=== PATIENT | female | born 2000 | race Caucasian/White ===

== ENCOUNTER 2024-01-11 03:45 | Outpatient (CLI) | payer OTHER, SELFPAY ==
--- OUTSIDE RECORDS SUMMARY | 2024-01-12 02:28 | XMS_ITS | Encounter Summary ---
Author Organization [place] Address [address] [place] [address]. [place] [address] Care Team Providers Care Graphic Engineer Name Role Phone Clinic, [facility] Primary Care Provider [phone] Reason for Visit * Reason Comments Ingestion Encounter Details Date Type Department Care Team (Late st Contact Info) Description 01/11/2024 4:18 AM CDT - 01/11/2024 8:24 AM CDT Emergency [facility] Emergency Dept [address] [place] [address] Saima Singh MD [facility] [address] [place], [place] [id number] Walter Carranza MD [address] [place] [address] [place] [id number] Altered mental status, unspecified altered mental status type; Alcoholic intoxication without complication (H24) Discharge Disposition: Home or Self Care Social History Tobacco Use Types Packs/Day Years Used Date Smoking Tobacco: Never Assessed Adolescent Education Answer Date Record ed Getting School Help Needed Not on file 03/26 Sex and Gender Information Value Date Recorded Sex Assigned at Not on file Gender Identity Not on file Sexual Orientation Not on file documented as of this encounter Last Filed Vital Signs Vital Sign Reading Time Taken Comments Blood Pressure 123/92 01/11/2024 8:10 AM CDT Pulse 117 01/11/2024 5:00 AM CDT Temperature 36.7 ??C (98 ??F) 01/11/2024 4:23 AM CDT Respiratory Rate 16 01/11/2024 8:10 AM CDT Oxygen Saturation 99% 01/11/2024 8:10 AM CDT Inhaled Oxygen Concentration - - Weight - - Height - - Body Mass Index - - documented in this encounter Discharge Instructions * Discharge Instructions* Walter Carranza MD - 01/11/2024 7:58 AM CDT Avoid excessive alcohol and any drug use. documented in this encounter ED Notes * Junaid Kramer RN - 01/11/2024 7:58 AM CDT Pt up and awake, states feeling well. Denies SI. MD at bedside to assess. Plan is to Discharge. Junaid Kramer RN * Kassandra Dutton RN - 01/11/2024 4:23 AM CDT Pt to ER with c/o possible ingestion of DIANA drug with some alcohol pt denies any drug use, EMS states that police stated pt was unresponsive when they arrived but no interventions where done, perEMS upon their arrival pt was responsive and walked to the stretcher * Martina Restrepo RN - 01/11/2024 4:18 AM CDT Bed: ED12 Expected date: Expected time: Means of arrival: Comments: NF [id number] * Saima Singh MD - 01/11/2024 4:18 AM CDT Emergency Department Note History of Present Illness Chief Complaint Ingestion HPI Sam Ordoñez is a 23 year old female with a history of asthma who presents to the ED via EMS for evaluation of suspected ingestion. Per EMS report, the patient was found to be unresponsive on policearrival but ambulatory and responsive on EMS arrival. EMS notes possible illicit drug ingestion. The patient states she was slipping in and out of reality when police arrived but was not sure whereshe was when this occurred. Reports left leg pain with EMS arrival but has since resolved. Denies any illicit drug use. Her last period was around 12/21/23 (she checked the date on her phone) and was normal. Denies pain here. Denies nausea, shortness of breath. Denies having any medical history or current prescription medications. Independent Historian EMS as detailed above. Review of External Notes Previous ED visit related to alcohol 02/19/2021 Past Medical History Medical History and Problem List Asthma Medications, historic: [place] Medrol dosepak Sertraline Physical Exam Patient Vitals for the past 24 hrs: BP Temp Temp src Pulse Resp SpO2 01/11/24 0423 (!) 137/91 98 ??F (36.7 ??C) Temporal 109 18 98 % Physical Exam Eyes: Sclera white; Pupils are equal and round; dilated 5mm; eyes roaming without nystagmus ENT: External ears and nares normal CV: Rate as above with regular rhythm Resp: Breath sounds clear and equal bilaterally Non-labored, no retractions or accessory muscle use GI: Abdomen is soft, non-tender, non-distended No rebound tenderness or peritoneal features MS: Moves all extremities Skin: Warm and dry Neuro: Speech is easy to understand but tangential and loses focus easily Diagnostics Lab Results Labs Ordered and Resulted from Time of ED Arrival to Time of ED Departure BASIC METABOLIC PANEL - Abnormal Result Value Sodium 143 Potassium 3.7 Chloride 106 Carbon Dioxide (CO2) 23 Anion Gap 14 Urea Nitrogen 5.1 (*) Creatinine 0.72 GFR Estimate >90 Calcium 8.5 (*) Glucose 101 (*) ETHYL ALCOHOL LEVEL - Abnormal Alcohol ethyl 0.24 (*) ACETAMINOPHEN LEVEL - Abnormal Acetaminophen <5.0 (*) SALICYLATE LEVEL - Normal Salicylate <0.3 HEPATIC FUNCTION PANEL - Normal Protein Total 7.8 Albumin 4.7 Bilirubin Total 0.3 Alkaline Phosphatase 71 AST 21 ALT 11 Bilirubin Direct <0.20 HCG QUALITATIVE - Normal hCG Serum Qualitative Negative CBC WITH PLATELETS AND DIFFERENTIAL WBC Count 6.9 RBC Count 4.70 Hemoglobin 14.1 Hematocrit 41.1 MCV 87 MCH 30.0 MCHC 34.3 RDW 12.7 Platelet Count 260 % Neutrophils 78 % Lymphocytes 15 % Monocytes 6 % Eosinophils 0 % Basophils 1 % Immature Granulocytes 0 NRBCs per 100 WBC 0 Absolute Neutrophils 5.4 Absolute Lymphocytes 1.0 Absolute Monocytes 0.4 Absolute Eosinophils 0.0 Absolute Basophils 0.0 Absolute Immature Granulocytes 0.0 Absolute NRBCs 0.0 Imaging No orders to display EKG ECG taken at 0535, ECG read at 0540 Sinus tachycardia Rate 106 bpm. ME interval 164 ms. QRS duration 72 ms. QT/QTc 352/467 ms. P-R-T axes 75 73 77. No STEMI. No prior. Agree - Dr Singh Independent Interpretation None ED Course Medications Administered Medications - No data to display Procedures Procedures Discussion of Management None ED Course ED Course as of 01/11/24 0522 Sat Jan 11, 2024 0514 I obtained history and performed a physical exam as noted above. Additional Documentation None Medical Decision Making / Diagnosis [facility] Diagnoses: None MIPS None MDM Sam Ordoñez is a 23 year old female presenting with altered mental status and concern for substance induced changes. She denies this but also cannot say what happened tonight. Physical exam is suggestive of stimulant use with dilated pupils and tachycardia. Labs demonstrate alcohol intoxication. No evidence for toxic coingestions such as Tylenol or salicylates. She is not . At time of signout she is pending clinical sobriety prior to clearing for discharge and removing the health officer 40 hold. Disposition Signed out Diagnosis ICD-10-CM 1. Altered mental status, unspecified altered mental status type R41.82 2. Alcoholic intoxication without complication (H24) F10.920 Discharge Medications New Prescriptions No medications on file Scribe Disclosure: IBritney, am serving as a scribe at 5:41 AM on 01/11/2024 to document services personally performed by Saima Singh MD based on my observations and the provider's statements to me. Saima Singh MD 01/11/24 0758 * Walter Carranza MD - 01/11/2024 4:18 AM CDT This patient was taken in signout. At 7:55 AM she is now alert and ambulatory. She carries on a conversation. No evidence of further intoxication or withdrawal. She is requesting to go home and was discharged. Walter Carranza MD 01/11/24 0759 documented in this encounter Plan of Treatment Pending Results Name Type Priority Associated Diagnoses Date /Time EKG 12-lead, tracing only EKG STAT 01/11/2024 5:35 AM CDT documented as of this encounter Procedures Procedure Name Priority Date/Time Associated Diagnosis Comments EKG 12-LEAD, TRACING ONLY STAT 01/11/2024 5:35 AM CDT CBC WITH PLATELETS AND DIFFERENTIAL STAT 01/11/2024 5:34 AM CDT CBC WITH PLATELETS & DIFFERENTIAL STAT 01/11/2024 5:34 AM CDT SALICYLATE LEVEL STAT 01/11/2024 5:34 AM CDT HEPATIC FUNCTION PANEL STAT 5:34 AM CDT HCG QUALITATIVE STAT 01/11/2024 5:34 AM CDT ETHYL ALCOHOL LEVEL STAT 01/11/2024 5 :34 AM CDT ACETAMINOPHEN LEVEL STAT 01/11/2024 5 :34 AM CDT BASIC METABOLIC PANEL STAT 01/11/2024 5:34 AM CDT documented in this encounter Results * CBC with platelets and differential (01/11/2024 5:34 AM CDT) Pathologist [facility] WBC Count 6.9 4.0 - 11.0 10e3/uL 01/11/2024 5:44 AM CDT [facility] RBC Count 4.70 3.80 - 5.20 10e6/uL 01/11/2024 5:44 AM CDT [facility] Hemoglobin 14.1 11.7 - 15.7 g/dL 01/11/2024 5:44 AM CDT [facility] Hematocrit 41.1 35.0 - 47.0 % 01/11/2024 5:44 AM CDT [facility] MCV 87 78 - 100 fL 01/11/2024 5:44 AM CDT [facility] MCH 30.0 26.5 - 33.0 pg 01/11/2024 5:44 AM CDT [facility] MCHC 34.3 31.5 - 36.5 g/dL 01/11/2024 5:44 AM CDT [facility] RDW 12.7 10.0 - 15.0 % 01/11/2024 5:44 AM CDT [facility] Platelet Count 260 150 - 450 10e3/uL 01/11/2024 5:44 AM CDT [facility] % Neutrophils 78 % 01/11/2024 5:44 AM CDT [facility] % Lymphocytes 15 % 01/11/2024 5:44 AM CDT [facility] % Monocytes 6 % 01/11/2024 5:44 AM CDT [facility] % Eosinophils 0 % 01/11/2024 5:44 AM CDT [facility] % Basophils 1 % 01/11/2024 5:44 AM CDT [facility] % Immature Granulocytes 0 % 01/11/2024 5:44 AM CDT [facility] NRBCs per 100 WBC 0 <1 /100 024 5:44 AM CDT [facility] Absolute Neutrophils 5.4 1.6 - 8.3 10e3/uL 01/11/2024 5:44 AM CDT [facility] Absolute Lymphocytes 1.0 0.8 - 5.3 10e3/uL 01/11/2024 5:44 AM CDT [facility] Absolute Monocytes 0.4 0.0 - 1.3 10e3/uL 01/11/2024 5:44 AM CDT [facility] Absolute Eosinophils 0.0 0.0 - 0.7 10e3/uL 01/11/2024 5:44 AM CDT [facility] Absolute Basophils 0.0 0.0 - 0.2 10e3/uL 01/11/2024 5:44 AM CDT [facility] Absolute Immature Granulocytes 0.0 <=0.4 10e3/uL 01/11/2024 5:44 AM CDT [facility] Absolute NRBCs 0.0 10e3/uL 01/11/2024 5:44 AM CDT [facility] Blood STRUCTURE OF RIGHT UPPER LIMB / Unknown Venipuncture / Unknown 01/11/2024 5:34 AM CDT 01/11/2024 5:40 AM CDT Jazmin Thurman DO LAB - BLOOD ORDERA BLES Performing Organization Address City/[facility]/ZIP Co de Phone Number [facility] Lab [address] Lab (1st floor, no room number) [place] [address] * HCG QUALitative (blood) (01/11/2024 5:34 AM CDT) hCG Serum Qualitative Negative Negative MARISELA 01/11/2024 6:15 AM CDT [facility] Comment:This test is for scr eening purposes. Results should be interpreted along with the clinical picture. Confirmation testing is available if warranted by ordering [id number], HCG Quantitative . Blood STRUCTURE OF RIGHT UPPER LIMB / Unknown Venipuncture / Unknown 01/11/2024 5:34 AM CDT 01/11/2024 5:40 AM CDT Saima Singh MD LAB - BLOOD ORD ERABLES Performing Organization Address City/[facility]/ZIP Co de Phone Number [facility] Lab [address] Lab (1st floor, no room number) [place] [address] * Hepatic function panel (01/11/2024 5:34 AM CDT) Protein Total 7.8 6.4 - 8.3 g/dL 01/11/2024 6:02 AM CDT [facility] Albumin 4.7 3.5 - 5.2 g/dL 01/11/2024 6:02 AM CDT [facility] Bilirubin Total 0.3 <=1.2 mg/dL 01/11/2024 6:02 AM CDT [facility] Alkaline Phosphatase 71 40 - 150 U/L 01/11/2024 6:02 AM CDT [facility] AST 21 0 - 45 U/L 01/11/2024 6:02 AM CDT [facility] ALT 11 0 - 50 U/L 01/11/2024 6:02 AM CDT [facility] Bilirubin Direct <0.20 0.00 - 0.30 mg/dL 01/11/2024 6:02 AM CDT [facility] Blood STRUCTURE OF RIGHT UPPER LIMB / Unknown Venipuncture / Unknown 01/11/2024 5:34 AM CDT 01/11/2024 5:40 AM CDT Saima Singh MD LAB - BLOOD ORD ERABLES [facility] Lab [address] Lab (1st floor, no room number) [place] [phone] [place] [address] * Salicylate level (01/11/2024 5:34 AM CDT) Salicylate <0.3 mg/dL 01/11/2024 7:43 AM CDT [facility] Comment: Salicylate Reference Range Therapeutic: ? 3-10 mg/dL Anti inflammatory: 15-30 mg/dL Blood STRUCTURE OF RIGHT UPPER LIMB / Unknown Venipuncture / Unknown 01/11/2024 5:34 AM CDT 01/11/2024 6:19 AM CDT Jazmin Thurman DO LAB - BLOOD ORDERA BLES Performing Organization Address City/[facility]/ZIP Co de Phone Number [facility] Lab [address] Lab (1st floor, no room number) [place] [phone] [place] [address] * (ABNORMAL) Acetaminophen level (01/11/2024 5:34 AM CDT) Acetaminophen <5.0(L) 10.0 - 30.0 ug/mL 01/11/2024 7:43 AM CDT LABORATORY Blood STRUCTURE OF RIGHT UPPER LIMB / Unknown Venipuncture / Unknown 01/11/2024 5:34 AM CDT 01/11/2024 6:19 AM CDT Jazmin Thurman DO LAB - BLOOD ORDERA BLES [facility] Lab [address] Lab (1st floor, no room number) [place] [phone] [place] [address] * (ABNORMAL) Alcohol level blood (01/11/2024 5:34 AM CDT) Alcohol ethyl 0.24(H) <=0.01 g/dL 01/11/2024 6:02 AM CDT LABORATORY Blood STRUCTURE OF RIGHT UPPER LIMB / Unknown Venipuncture / Unknown 01/11/2024 5:34 AM CDT 01/11/2024 5:40 AM CDT Jazmin Thurman DO LAB - BLOOD ORDERA BLES LABORATORY [facility] Acute Care Lab [address] Lab (1st floor, no room number) [address] [place] [address] * (ABNORMAL) Basic metabolic panel (01/11/2024 5:34 AM CDT) Pathologist [facility] Sodium 143 135 - 145 mmol/L 01/11/2024 6:02 AM CDT LABORATORY Potassium 3.7 3.4 - 5.3 mmol/L 01/11/2024 6:02 AM CDT LABORATORY Chloride 106 98 - 107 mmol/L 01/11/2024 6:02 AM CDT LABORATORY Carbon Dioxide (CO2) 23 22 - 29 mmol/L 01/11/2024 6:02 AM CDT LABORATORY Anion Gap 14 7 - 15 mmol/L 01/11/2024 6:02 AM CDT LABORATORY Urea Nitrogen 5.1(L) 6.0 - 20.0 mg/dL 01/11/2024 6:02 AM CDT LABORATORY Creatinine 0.72 0.51 - 0.95 mg/dL 01/11/2024 6:02 AM CDT LABORATORY GFR Estimate >90 >60 mL/min/1.7 3m2 01/11/2024 6:02 AM CDT LABORATORY Comment:eGFR calculated usin 2020 CKD-EPI equation. Calcium 8.5(L) 8.8 - 10.4 mg/dL 01/11/2024 6:02 AM CDT LABORATORY Comment:Reference intervals for this test were updated on 12/24/2023 to reflect our healthy population more accurately. There may be differences in the flagging of prior results with similar values performed with this method. Those prior results can be interpreted in the context of the updated reference intervals. Glucose 101(H) 70 - 99 mg/dL 01/11/2024 6:02 AM CDT LABORATORY Blood STRUCTURE OF RIGHT UPPER LIMB / Unknown Venipuncture / Unknown 01/11/2024 5:34 AM CDT 01/11/2024 5:40 AM CDT Jazmin Thurman DO LAB - BLOOD ORDERA BLES LABORATORY [facility] Acute [facility] Lab [address] Lab (1st floor, no room number) [place] [address], [facility] documented in this encounter Visit Diagnoses Diagnosis Altered mental status, unspecified altered mental status type Alcoholic intoxication without complication (H24) documented in this encounter Care Teams Graphic Engineer Relationship Specialty Start Date End Date [facility], Wei Roche [address] [place] [address] [place] [address] PCP - General 01/11/24 documented as of this encounter
--- OUTSIDE RECORDS SUMMARY | 2024-01-12 02:28 | XMS_ITS | Referral Summary ---
Author Organization [facility] Address [address] [place] [address] Care Team Providers Care Piece Work Checker Name Role Phone Elsewhere, Pcp Primary Care Provider Unavailabl e Source Comments Patient records contain information from all sites at [facility]. For routine questions regarding patient records, call [phone] during business hours, M-F 8:00 AM - 5:00 PM Central Time. Record requests for emergency care only can be directed to [phone] at any time.[facility] Allergies Active Allergy Reactions Criticality Noted Date Comments Azithromycin Rash Low 07/04/2020 Oxytocin Other (see comments) 12/09/2022 Pt reports her mother was given a dose when she was in utero and her heart rate went up. Pt requested this medication be added to her chart. Medications Medication Sig Dispensed Refills Start Date End Date Status loratadine (CLARITIN) 10 mg tablet Take 10 mg by mouth at bedtime as needed. 03/02/2020 Active hydrOXYzine (ATARAX) 10 mg tablet 1-2 tabs up to three time daily as needed for anxiety or insomnia. May cause drowsiness. 03/02/2020 Active albuterol 90 mcg/actuation inhaler Inhale 2 puffs every 4 (four) hours as needed. 03/02/2020 Active Social History Tobacco Use Types Packs/Day Years Used Date Smoking Tobacco: Never Tobacco Cessation:Counseling Given: Not Answered Alcohol Use Standard Drinks/Week Comments Yes 0 (1 standard drink = 0.6 oz pur e alcohol) socially Nutrition Answer Date Recorded Nutrition: EVOO Fat Source Unknown 12/09 Nutrition: Servings of Fruits/Vegetables per Day Not on file 12/09/2022 Dental Answer Date Recorded Dental: Regular Dentist Unknown 12/10/19 Sex and Gender Information Value Date Recorded Sex Assigned at Not on file Gender Identity Not on file Sexual Orientation Not on file Last Filed Vital Signs Vital Sign Reading Time Taken Comments Blood Pressure 93/48 12/09/2022 6:30 PM CDT Pulse 79 12/09/2022 6:30 PM CDT Temperature 37.4 ??C (99.3 ??F) 12/09/2022 5:30 PM CD T Respiratory Rate 18 12/09/2022 6:30 PM CDT Oxygen Saturation 99% 12/09/2022 6:30 PM CDT Inhaled Oxygen Concentration - - Weight 45.4 kg (100 lb) 12/09/2022 5:24 PM CDT Height - - Body Mass Index - - Plan of Treatment Not on file Care Teams Piece Work Checker Relationship Specialty Start Date End Date Elsewhere, Pcp PCP - General Internal Medicine 12/09/22
--- OUTSIDE RECORDS SUMMARY | 2024-01-12 02:28 | XMS_ITS | Clinical Summary ---
Author Organization [facility] Address [place], [place] [address] Care Team Providers Care Shot Hole Shooter Name Role Phone Dawn Roy DO Primary Care Provide r Allergies Active Allergy Reactions Criticality Noted Date Comments Azithromycin Rash Low 07/04/2020 Medications Medication Sig Dispensed Refills Start Date End Date Status loratadine (CLARITIN) 10 mg tablet Take 1 tablet by mouth once daily if needed for Allergy Symptoms. 0 03/02/2020 Active albuterol HFA (VENTOLIN HFA) 90 mcg/actuation inhalerIndications:ELIZABETH (dyspnea on exertion),Reactive airway disease, unspecified asthma severity, uncomplicated Inhale 2 Puffs by mouth every 4 hours if needed. 18 g 2 03/02/2020 Active hydrOXYzine HCL (ATARAX) 10 mg tabletIndications:TAMIR (generalized anxiety disorder) 1-2 tabs up to three time daily as needed for anxiety or insomnia. May cause drowsiness. 30 tablet 1 03/02/2020 Active Active Problems Problem Noted Date Diagnosed Date 1st degree AV block 05/04/2019 Breast lump, left 10/22/2018 Overview: 10/22/18 Breast Ultrasound: The LEFT breast lump along the 1 o'clock radian 3 cm from the nipple corresponds to a circumscribed solid, hypoechoic mass measuring 4.5 x 2.2 x 4.3 cm. The long axis parallels the skin surface. There is increased through-transmission. This most likely represents a benign fibroadenoma. IMPRESSION: Probable benign fibroadenoma. Options include either ultrasound-guided biopsy or surgical excision. Mild intermittent asthma Resolved Problems Problem Noted Date Diagnosed Date Resolved Date Otitis media 09/25/2009 Immunizations Name Administration Dates Next Due COVID-19 vaccine ([employer] 30mcg/0.3mL) PF, MDV 11/15/2020,10/25/2020 DTaP 01/22/2008,12/15/2003 [id number] (Pediarix) 2002,2002,0 2002 HIB PRP-T (ActHIB,Hiberix) 12/15/2003,,2002,08/28 HPV 9 (Gardasil 9) 03/03/2018 Hepatitis A (Peds) 03/03/2018,01/13/2014 Human Papilloma Virus Vaccine 02/24/2014, 014 Inactivated Polio Vaccine 01/22/2008 Influenza A (H1N1), Inactivated 06/21/2009,04/26 Influenza, IIV3 (Age >=3 years) 04/26/2008 Influenza, IIV4 02/24/2014 MMR 01/22/2008,07/15/2003 Meningococcal Vaccine (Menveo) 09/02/2018,2013 Tdap 01/13/2014 Varicella Vaccine 04/26/2008,07/15/2003 Family History Medical History Relation Name Comments Good Health Brother 2 younger 9 yr Heart failure Father Wilder advanced in 20 13 Heart Disease Maternal Grandfather CABG 3 vsl at 61yo?, stents also Hypertension Maternal Grandmother Good Health Mother Gabbie Cancer Paternal Grandfather childho od cancer/renal?, lymphoma? Stroke Paternal Grandfather at 57yo Good Health Paternal Grandmother Relation Name Status Comments Brother 1 Marvin. younger 5 yr Alive Brother 2 younger 9 yr Alive Father Wilder Alive Maternal Grandfather Maternal Grandmother Mother Gabbie Alive Paternal Grandfather Paternal Grandmother Social History Tobacco Use Types Packs/Day Years Used Date Smoking Tobacco: Never Smokeless Tobacco: Never Tobacco Cessation:Counseling Given: Yes Alcohol Use Standard Drinks/Week Comments No 0 (1 standard drink = 0.6 oz pur e alcohol) PHQ-2 Answer Date Recorded PHQ-2 TOTAL SCORE 2 11/09/2022 Social Connections Answer Date Recorded Frequency of Communication with Friends and Fami ly Not on file 11/13/2023 Financial Resource Strain Answer Date R ecorded Difficulty of Paying Living Expenses 3 11/09/2022 Difficulty of Paying Living Expenses Not on file 11/09/2022 Food Insecurity Answer Date Recorded Worried About Running Out of Food in the Last Ye ar 1 11/09/2022 Transportation Needs Answer Date Record ed Lack of Transportation (Medical) 1 11/09/2022 Housing Stability Answer Date Recorded Unable to Pay for Housing in the Last Year 1 11/09/2022 Sex and Gender Information Value Date Recorded Sex Assigned at Not on file Gender Identity Not on file Sexual Orientation Not on file Obstetrics History Last Filed Vital Signs Vital Sign Reading Time Taken Comments Blood Pressure 110/72 11/09/2022 10:15 AM CDT Pulse 79 11/09/2022 10:15 AM CDT Temperature 39.4 ??C (102.9 ??F) 06/23/2020 1:[address] Respiratory Rate 16 06/05/2018 8:32 AM INTERCHANGE AGENT Oxygen Saturation 98% 11/09/2022 10:15 AM CDT Inhaled Oxygen Concentration - - Weight 45.8 kg (101 lb) 11/09/2022 10:15 AM CDT Height 156.5 cm (5' 1.61) 07/04/2020 1:57 PM CS T Body Mass Index - - Plan of Treatment Health Maintenance Due Date Last Done Comments HIV for age 15-65 2017 Hepatitis C screening for age 18-79 2020 Chlamydia for age 16-24 03/02/2021 03/02/20 20, 03/27/2019, 09/02/2018 BMI (ht and wt on same day) for age 18+ 07/04/2021 07/04/2020 COVID-19 vaccine series ( season) 2023 11/15/2020, 10/25/2020 Pap test for age 21-65 2023 Depression screening for age 12+ 11/10/2023 11/09/2022, 03/02/2020, 09/02/2018, Additional history exists Tetanus booster 01/14/2024 01/13/2014 Influenza for age 9-49 02/09/2024 4, 06/21/2009, 04/26/2009, Additional history exists Tdap Completed 01/13/2014 HPV series for age 9-26 Completed 03/03/20 18, 02/24/2014, 01/13/2014 Meningococcal series for age 11-21 Completed 09/02/2018, 01/13/2014 Pneumococcal series for age 6-64 Aged Out No longer eligible based on patient's age to complete this topic Procedures Procedure Name Priority Date/Time Associated Diagnosis Comments GC CHLAMYDIA TRACH PROBE Routine 03/02/2020 3:23 PM CDT Screening examination for STD (sexually transmitted disease) from Last 3 Months or Most Recently Relevant to Health Maintenance Results * GC CHLAMYDIA TRACH PROBE [[id number]] (urine, or cervical or urethral swab) (03/02/2020 3:23 PM CDT) CHLAMYDIA PROBE Negative 0 12:16 PM CDT [facility] N GONORRHOEAE PROBE Negative 03/03/2020 12:16 PM CDT [facility] Other URINE SPECIMEN / Unknown Non-Blood / Unknown 03/02/2020 3:23 PM CDT 03/02/2020 3:23 PM CDT Dawn Roy DO MICROBIOLOGY [facility] [address] [place] [address], [place] from Last 3 Months or Most Recently Relevant to Health Maintenance Care Teams Shot Hole Shooter Relationship Specialty Start Date End Date Dawn Roy DO [address] [place] [address] PCP - General Family Practice 01/02/18
--- OUTSIDE RECORDS SUMMARY | 2024-01-12 02:28 | XMS_ITS | Encounter Summary ---
Author Organization [facility] Address [address] [place] [address]. [place] [address] Care Team Providers Care Passenger Service Manager Name Role Phone Wei Tsai Primary Care Provider [phone] Encounter Details Date Type Department Care Team (Latest Contact Info) Description 01/11/2024 Travel Social History Tobacco Use Types Packs/Day Years Used Date Smoking Tobacco: Never Assessed Adolescent Education Answer Date Record ed Getting School Help Needed Not on file 03/26 Sex and Gender Information Value Date Recorded Sex Assigned at Not on file Gender Identity Not on file Sexual Orientation Not on file documented as of this encounter Plan of Treatment Not on file documented as of this encounter Visit Diagnoses Not on filedocumented in this encounter Care Teams Passenger Service Manager Relationship Specialty Start Date End Date Wei Tsai [facility] [place] [id number] PCP - General 01/11/24 documented as of this encounter
--- OUTSIDE RECORDS SUMMARY | 2024-01-12 02:28 | XMS_ITS | Referral Summary ---
Author Organization [facility] Address [address] [place] [address]. [place] [address] Care Team Providers Care Commercial Sheet Metal Foreman Name Role Phone Clinic, Wei Roche Primary Care Provider Encounters Date Type Department Care Team Description 01/11/2024 Travel 01/11/2024 4:18 AM CDT - 01/11/2024 8:24 AM CDT Emergency [facility] Emergency Dept [address] [place] [address] Saima Singh MD McRoberts, Sean Edward, MD Altered mental status, unspecified altered mental status type; Alcoholic intoxication without complication (H24) Discharge Disposition: Home or Self Care from Last 3 Months Allergies Active Allergy Reactions Criticality Noted Date Comments Azithromycin Rash Low 07/04/2020 Medications No known medications Social History Tobacco Use Types Packs/Day Years [...] - Plan of Treatment Not on file Procedures Procedure Name Priority Date/Time Associated Diagnosis Comments EKG 12-LEAD, TRACING ONLY STAT 01/11/2024 5:35 AM CDT CBC WITH PLATELETS & DIFFERENTIAL STAT 01/11/2024 5:34 AM CDT CBC WITH PLATELETS AND DIFFERENTIAL STAT 01/11/2024 5:34 AM CDT HCG QUALITATIVE STAT 01/11/2024 5:34 AM CDT HEPATIC FUNCTION PANEL STAT 5:34 AM CDT SALICYLATE LEVEL STAT 01/11/2024 5:34 AM CDT ACETAMINOPHEN LEVEL STAT 01/11/2024 5 :34 AM CDT ETHYL ALCOHOL LEVEL STAT 01/11/2024 5 :34 AM CDT BASIC METABOLIC PANEL STAT 01/11/2024 5:34 AM CDT from Last 3 Months Results * CBC with platelets and differential (01/11/2024 5:34 AM CDT) [facility] WBC Count 6.9 4.0 - [...] Thurman DO LAB - BLOOD ORDERA BLES [facility] LABORATORY [facility] Acute Care Lab [address] Lab (1st floor, no room number) [place] [address], [facility] * Salicylate level (01/11/2024 5:34 AM CDT) Salicylate <0.3 mg/dL 01/11/2024 7:43 AM CDT [facility] LABORATORY Comment: Salicylate Reference Range Therapeutic: ? 3-10 mg/dL Anti inflammatory: 15-30 mg/dL Blood STRUCTURE OF RIGHT UPPER LIMB / Unknown Venipuncture / Unknown 01/11/2024 5:34 AM CDT 01/11/2024 6:19 AM CDT Jazmin Thurman DO LAB - BLOOD ORDERA BLES Performing Organization Address City/[facility]/ZIP Co de Phone Number [facility] Acute Care Lab [address] Lab (1st floor, no room number) [place] [address], [facility] * Hepatic function panel (01/11/2024 5:34 AM CDT) [facility] Protein Total 7.8 6.4 - 8.3 g/dL [...] Singh MD LAB - BLOOD ORD ERABLES [facility] Acute Care Lab [address] Lab (1st floor, no room number) [place] [address], [facility] * HCG QUALitative (blood) (01/11/2024 5:34 AM CDT) hCG Serum Qualitative Negative Negative MARISELA 01/11/2024 6:15 AM CDT RH LAB[facility]ATORY Comment:This test is for scr eening purposes. Results should be interpreted along with the clinical picture. Confirmation testing is available if warranted by ordering [id number], HCG Quantitative . Blood STRUCTURE OF RIGHT UPPER LIMB / Unknown Venipuncture / Unknown 01/11/2024 5:34 AM CDT 01/11/2024 5:40 AM CDT Saima Singh MD LAB - BLOOD ORD ERABLES LABORATORY [facility] Acute Care Lab [address] Lab (1st floor, no room number) [address] * (ABNORMAL) Alcohol level blood (01/11/2024 5:34 AM CDT) Alcohol ethyl 0.24(H) <=0.01 g/dL 01/11/2024 6:02 AM CDT [facility] LAB[facility] Blood STRUCTURE OF RIGHT UPPER LIMB / Unknown Venipuncture / Unknown 01/11/2024 5:34 AM CDT 01/11/2024 5:40 AM CDT Jazmin Thurman DO LAB - BLOOD ORDERA BLES LABORATORY [facility] Acute Care Lab [address] Lab (1st floor, no room number) [address] * (ABNORMAL) Acetaminophen level (01/11/2024 5:34 AM CDT) Acetaminophen <5.0(L) 10.0 - 30.0 ug/mL 01/11/2024 7:43 AM CDT RH LAB[facility]ORY Blood STRUCTURE OF RIGHT UPPER LIMB / Unknown Venipuncture / Unknown 01/11/2024 5:34 AM CDT 01/11/2024 6:19 AM CDT Jazmin Thurman DO LAB - BLOOD ORDERA BLES RH LABORATORY [facility] Acute Care Lab [address] Lab (1st floor, no room number) [place] [address], [facility] * (ABNORMAL) Basic metabolic panel (01/11/2024 5:34 AM CDT) Sodium 143 135 - 145 mmol/L 01/11/2024 [...] AM CDT 01/11/2024 5:40 AM CDT Jazmin E Thurman DO LAB - BLOOD ORDERA BLES RH LABORATORY [facility] Acute Care Lab [address] Lab (1st floor, no room number) [place] [address], [facility] from Last 3 Months Care Teams Commercial Sheet Metal Foreman Relationship Specialty Start Date End Date Clinic, Wei Roche [address] [place], [place] [address] [address] PCP - General 01/11/24
--- OUTSIDE RECORDS SUMMARY | 2024-01-12 02:28 | XMS_ITS | Clinical Summary ---
Author Organization [facility] Address [address] [place] [address] Care Team Providers Care Dry Cleaning Supervisor Name Role Phone Elsewhere, Pcp Primary Care Provider Unavailabl e Source Comments Patient records contain information from all sites at [facility]. For routine questions regarding patient records, call [phone] during business hours, M-F 8:00 AM - 5:00 PM Central Time. Record requests for emergency care only can be directed to [phone] at any time.[facility] Allergies Active Allergy Reactions Criticality Noted Date [...] Health Maintenance Due Date Last Done Comments Cervical Cancer Screening 2002 Chlamydia and Gonorrhea Screening 2002 HIV Screening 2002 Hearing Screening during Well Child Visit 2002 Hepatitis C Screening 2002 TB Screening during Well Child Visit 2002 1 week Well Child Check-Up 2002 1 month Well Child Check-Up 2002 2 month Well Child Check-Up 2002 4 month Well Child Check-Up 2002 6 month Well Child Check-Up 2002 9 month Well Child Check-Up 02/28/2003 12 month Well Child Check-Up 05/30/2003 15 month Well Child Check-Up 08/29/2003 18 month Well Child Check-Up 11/29/2003 2 year Well Child Check-Up 05/30/2004 30 month Well Child Check-Up 11/28/2004 3 year Well Child Check-Up 05/30/2005 Well Child Check-Up Completed in Past Year 05/30/2005 4 year Well Child Check-Up 05/30/2006 5 year Well Child Check-Up 05/30/2007 6 year Well Child Check-Up 05/30/2008 7 year Well Child Check-Up 05/30/2009 8 year Well Child Check-Up 05/30/2010 9 year Well Child Check-Up 05/30/2011 10 year Well Child Check-Up 05/30/2012 11 year Well Child Check-Up 05/30/2013 12 year Well Child Check-Up 05/30/2014 13 year Well Child Check-Up 05/30/2015 14 year Well Child Check-Up 05/30/2016 15 year Well Child Check-Up 05/30/2017 16 year Well Child Check-Up 05/30/2018 17 year Well Child Check-Up 05/30/2019 18 year Well Child Check-Up 05/30/2020 19 year Well Child Check-Up 05/30/2021 20 year Well Child Check-Up 05/30/2022 COVID-19 Vaccine ( season) 2023 11/15/2020, 10/25/2020 21 year Well Child Check-Up 05/30/2023 Well Child Check-Up (WCC) 05/30/2023 Depression Screening (Annual PHQ-2) 06/10/2023 DTaP,Tdap,and Td Vaccines (7 - Td or Tdap) 01/14/2024 01/13/2014, 01/22/2008, 12/15/2003, Additional history exists Influenza Vaccine (#1) 2024 4, 04/26/2008, 04/26/2008 Hepatitis B Vaccines Completed 2002, 2002, 2002 HPV Vaccines Completed 03/03/2018, 02/08, 01/13/2014 Meningococcal Vaccine Completed 09/02/2018, 014 Pneumococcal vaccine (0-64 years) Aged Out No longer eligible based on patient's age to complete this topic Care Teams Dry Cleaning Supervisor Relationship Specialty Start Date End Date Elsewhere, Pcp PCP - General Internal Medicine 12/09/22
--- OUTSIDE RECORDS SUMMARY | 2024-01-12 02:28 | XMS_ITS | Clinical Summary ---
Author Organization [facility] Address [address] [place] [address]. [place] [address] Care Team Providers Care Belt Loop Maker Name Role Phone Clinic, Wei Roche Primary Care Provider Allergies Active Allergy Reactions Criticality Noted Date Comments Azithromycin Rash Low 07/04/2020 Medications No known medications Encounters Date Type Department Care Team Description 01/11/2024 4:18 AM CDT - 01/11/2024 8:24 AM CDT Emergency [facility] Emergency Dept [address] [place] [address] Saima Singh MD McRoberts, Walter Negron MD Altered mental status, unspecified altered mental status type; Alcoholic intoxication without complication (H24) Discharge Disposition: Home or Self Care 01/11/2024 Travel from Last 3 Months Social History Tobacco Use Types Packs/Day Years [...] Health Maintenance Due Date Last Done Comments ADVANCE CARE PLANNING 2002 ANNUAL REVIEW OF HM ORDERS 2002 HIV SCREENING 2017 HEPATITIS C SCREENING 2020 CHLAMYDIA SCREENING 03/02/2021 03/02/2020 YEARLY PREVENTIVE VISIT 03/02/2021 03/02/2020 COVID-19 Vaccine ( season) 2023 11/15/2020, 10/25/2020 PHQ-2 (once per calendar year) 2023 PAP 2023 DTAP/TDAP/TD IMMUNIZATION (7 - Td or Tdap) 01/14/2024 01/13/2014, 01/22/2008, 12/15/2003, Additional history exists INFLUENZA VACCINE (#1) 2024 4, 06/21/2009, 04/26/2009, Additional history exists HEPATITIS B IMMUNIZATION Completed 003, 2002, 2002 IPV IMMUNIZATION Completed 01/22/2008, , 2002, Additional history exists HPV IMMUNIZATION Completed 03/03/2018, , 01/13/2014 MENINGITIS IMMUNIZATION Completed 09/02/2018, 01/13 Pneumococcal Vaccine: Pediatrics (0 to 5 Years) and At-Risk Patients (6 to 64 Years) Aged Out No longer eligible based on patient's age to complete this topic RSV MONOCLONAL ANTIBODY Aged Out No l onger eligible based on patient's age to complete [...] platelets and differential (01/11/2024 5:34 AM CDT) WBC Count 6.9 4.0 - 11.0 10e3/uL [...] DO LAB - BLOOD ORDERA BLES LABORATORY [facility] Acute Care Lab [address] Lab (1st floor, no room number) [place] [address] * Salicylate level (01/11/2024 5:34 AM CDT) [facility] Signature Salicylate <0.3 mg/dL 01/11/2024 7:43 AM CDT RH LABORATORY Comment: Salicylate Reference Range Therapeutic: ? 3-10 mg/dL Anti inflammatory: 15-30 mg/dL Blood STRUCTURE OF RIGHT UPPER LIMB / Unknown Venipuncture / Unknown 01/11/2024 5:34 AM CDT 01/11/2024 6:19 AM CDT Jazmin Thurman DO LAB - BLOOD ORDERA BLES LABORATORY [facility] Acute Care Lab [address] Lab (1st floor, no room number) [place] [address], [facility] * Hepatic function panel (01/11/2024 5:34 [...] Singh MD LAB - BLOOD ORD ERABLES [facility] Lab [address] Lab (1st floor, no room number) [place] [address] * HCG QUALitative (blood) (01/11/2024 5:34 AM CDT) Pathologist [facility] hCG Serum Qualitative Negative Negative MARISELA 01/11/2024 6:15 AM CDT RH LABORATORY Comment:This test is for scr eening purposes. Results should be interpreted along with the clinical picture. Confirmation testing is available if warranted by ordering [id number], HCG Quantitative . Blood STRUCTURE OF RIGHT UPPER LIMB / Unknown Venipuncture / Unknown 01/11/2024 5:34 AM CDT 01/11/2024 5:40 AM CDT Saima Singh MD LAB - BLOOD ORD ERABLES [facility] Care Lab [address] Lab (1st floor, no room number) [place] [id number] * (ABNORMAL) Alcohol level blood (01/11/2024 5:34 AM CDT) Alcohol ethyl 0.24(H) <=0.01 g/dL 01/11/2024 6:02 AM CDT LABORATORY Blood STRUCTURE OF RIGHT UPPER LIMB / Unknown Venipuncture / Unknown 01/11/2024 5:34 AM CDT 01/11/2024 5:40 AM CDT Jazmin Thurman DO LAB - BLOOD ORDERA BLES LABORATORY [facility] Lab [address] Lab (1st floor, no room number) [place] [id number] * (ABNORMAL) Acetaminophen level (01/11/2024 5:34 AM CDT) Pathologist [facility] Acetaminophen <5.0(L) 10.0 - 30.0 ug/mL 01/11/2024 7:43 AM CDT LABORATORY Blood STRUCTURE OF RIGHT UPPER LIMB / Unknown Venipuncture / Unknown 01/11/2024 5:34 AM CDT 01/11/2024 6:19 AM CDT Jazmin Thurman DO LAB - BLOOD ORDERA BLES LABORATORY [facility] Acute Care Lab [address] Lab (1st floor, no room number) [place] [id number] * (ABNORMAL) Basic metabolic panel (01/11/2024 5:34 AM CDT) Sodium 143 135 - 145 mmol/L 01/11/2024 6:02 AM CDT LABORATORY Potassium 3.7 3.4 - 5.3 mmol/L 01/11/2024 6:02 AM CDT LABORATORY Chloride 106 98 - 107 mmol/L 01/11/2024 6:02 AM CDT RH LABORAT[facility] Carbon Dioxide (CO2) 23 22 - 29 mmol/L 01/11/2024 6:02 AM CDT RH LAB[facility] Anion Gap 14 7 - 15 mmol/L 01/11/2024 6:02 AM CDT RH LAB[facility] Urea Nitrogen 5.1(L) 6.0 - 20.0 mg/dL 01/11/2024 6:02 AM CDT RH LAB[facility]ORY Creatinine 0.72 0.51 - 0.95 mg/dL 01/11/2024 6:02 AM CDT RH LAB[facility] GFR Estimate >90 >60 mL/min/1.7 3m2 01/11/2024 6:02 AM CDT RH LAB[facility]ATORY Comment:eGFR calculated us2020 CKD-EPI equation. Calcium 8.5(L) 8.8 - 10.4 mg/dL 01/11/2024 6:02 AM CDT RH LAB[facility] Comment:Reference intervals for this test were updated on 12/24/2023 to reflect our healthy population more accurately. There may be differences in the flagging of prior results with similar values performed with this method. Those prior results can be interpreted in the context of the updated reference intervals. Glucose 101(H) 70 - 99 mg/dL 01/11/2024 6:02 AM CDT RH LAB[facility] Blood STRUCTURE OF RIGHT UPPER LIMB / Unknown Venipuncture / Unknown 01/11/2024 5:34 AM CDT 01/11/2024 5:40 AM CDT Jazmin Thurman DO LAB - BLOOD ORDERA BLES RH LABORATORY [facility] Acute Care Lab [address] Lab (1st floor, no room number) [place] [address], [facility] from Last 3 Months Care Teams Belt Loop Maker Relationship Specialty Start Date End Date Clinic, Wei Roche [address] [place] [address] [place] [id number] PCP - General 01/11/24
--- OUTSIDE RECORDS SUMMARY | 2024-01-12 02:28 | XMS_ITS ---
Author Organization [facility] Address [address] [place] [address] Care Team Providers Care Corporate Banking Officer Name Role Phone Unavailable Unavailable Unavailable Surgery Details Not on file Complications Check Surgery Details section. Procedure Estimated Blood Loss Check Surgery Details section. Procedure Findings Check Surgery Details section. Procedure Specimens Taken Check Surgery Details section.
== END 2024-01-11 03:46 | disposition home or self-care (01) ==
LOC: AMB 01-12 02:26
PROVIDERS: Visit Provider Emergency Medicine
DX: R41.82 Altered mental status, unspecified (principal); F10.129 Alcohol abuse with intoxication, unspecified; F19.10 Other psychoactive substance abuse, uncomplicated
CPT/HCPCS: A0425; A0427

== ENCOUNTER 2024-04-10 09:04 | Outpatient (CLI) | payer OTHER, SELFPAY ==
--- OUTSIDE RECORDS SUMMARY | 2024-04-10 09:07 | XMS_ITS | Clinical Summary ---
Author Organization [facility] Address [address] [place] [address] Care Team Providers Care Acoustic Warfare Analyst Name Role Phone Elsewhere, Pcp Primary Care Provider Unavailabl e Source Comments Patient records contain information from all sites at [facility]. For routine questions regarding patient records, call [phone] during business hours, M-F 8:00 AM - 5:00 PM Central Time. Record requests for emergency care only can be directed to [phone] at any time.[facility] Allergies Active Allergy Reactions Criticality Noted Date Comments Azithromycin Rash Low 07/04/2020 Oxytocin Other (see comments) 12/09/2022 Pt reports her mother was given a dose when she was in utero and her heart rate went up. Pt requested this medication be added to her chart. Medications loratadine (CLARITIN) 10 mg tablet Take 10 [...] Date Recorded Dental: Regular Dentist Unknown 12/10/19 Comments Unknown Sex and Gender Information Value Date Recorded Sex Assigned at Not on file Legal Sex Female 5:16 PM CDT Gender Identity Not on file Sexual Orientation [...] Health Maintenance Due Date Last Done Comments Cervical/Vaginal Cancer Screening 2002 Chlamydia and Gonorrhea Screening [...] 05/30/2021 20 year Well Child Check-Up 05/30/2022 21 year Well Child Check-Up 05/30/2023 Well Child Check-Up (WCC) 05/30/2023 Depression Screening (Annual PHQ-2) 06/10/2023 DTaP,Tdap,and Td Vaccines (7 - Td or Tdap) 01/14/2024 01/13/2014, 01/22/2008, 12/15/2003, Additional history exists COVID-19 Vaccine ( season) 2024 11/15/2020, 10/25/2020 Influenza Vaccine (#1) 2024 4, 04/26/2008, 04/26/2008 Hepatitis B Vaccines Completed 2002, 2002, 2002 IPV Vaccines Completed 01/22/2008, 12/09, 2002, Additional history exists HPV Vaccines Completed 03/03/2018, 02/08, 01/13/2014 Meningococcal Vaccine Completed 09/02/2018, 014 Pneumococcal vaccine (0-64 years) Aged Out No longer eligible based on patient's age to complete this topic Insurance [employer] Care Teams Acoustic Warfare Analyst Relationship Specialty Start Date End Date Elsewhere, Pcp PCP - General Internal Medicine 12/09/22
--- OUTSIDE RECORDS SUMMARY | 2024-04-10 09:08 | XMS_ITS | Clinical Summary ---
Author Organization [facility] Address [place], [place] [address] Care Team Providers Care Ob Gyn Name Role Phone Dawn Roy DO Primary Care Provide r Allergies Active Allergy Reactions Criticality Noted Date Comments Azithromycin Rash Low 07/04/2020 Medications Medication Sig Dispensed Refills Start Date End Date Status loratadine (CLARITIN) 10 mg tablet Take 1 tablet by mouth once daily if needed for Allergy Symptoms. 0 03/02/2020 Active albuterol HFA (VENTOLIN HFA) 90 mcg/actuation inhalerIndications:DO E (dyspnea on exertion),Reactive airway disease, unspecified asthma severity, uncomplicated Inhale 2 Puffs by mouth every 4 hours if needed. 18 g 2 03/02/2020 Active hydrOXYzine HCL (ATARAX) 10 mg tabletIndications:TAMIR (generalized anxiety disorder) 1-2 tabs up to three time daily as needed for anxiety or insomnia. May cause drowsiness. 30 tablet 1 03/02/2020 Active ketoconazole 2% shampoo (NIZORAL) 2 % shampooIndications:Ti daniel versicolor Apply to affected skin thoroughly each day for 3 days. Leave sit for 5 minutes and then rinse off. 120 mL 02/21/2024 Active Active Problems Problem Noted Date Diagnosed Date 1st degree AV block 05/04/2019 Breast lump, left 10/22/2018 Overview (10/22/2018): 10/22/18 Breast Ultrasound: The LEFT breast lump [...] Diagnosed Date Resolved Date Otitis media 09/25/2009 Encounters Date Type Department Care Team Description 02/21/2024 10:30 AM CDT Office Visit [facility] [address] [place] [address] Judah Mejia, YONI Rash (x3 mo both shoulders rash ) 02/21/2024 Travel from Last 3 Months Immunizations Name Administration Dates Next Due COVID-19 vaccine (Joystickers NTech 30mcg/0.3mL) PF, MDV 11/15/2020,10/25/2020 DTaP 01/22/2008,12/15/2003 [id number] (Pediarix) 2002,2002,0 2002 HIB PRP-T (ActHIB,Hiberix) 12/15/2003,,2002,08/28 HPV 9 (Gardasil 9) 03/03/2018 Hepatitis A (Peds) 03/03/2018,01/13/2014 Human Papilloma Virus Vaccine 02/24/2014, 014 Inactivated Polio Vaccine 01/22/2008 Influenza A (H1N1), Inactivated 06/21/2009,04/26 Influenza, IIV3 (Age >=3 years) 04/26/2008 Influenza, IIV4 02/24/2014 MENINGOCOCCAL VACCINE 2 VIAL [id number] (MENVEO) 09/02/2018,01/13/2014 MMR 01/22/2008,07/15/2003 Tdap 01/13/2014 Varicella Vaccine 04/26/2008,07/15/2003 Family History [...] Given: Yes Alcohol Use Standard Drinks/Week Comments Yes 0 (1 standard drink = 0.6 oz pur e alcohol) occ PHQ-2 Answer Date Recorded PHQ-2 TOTAL SCORE [...] Sign Reading Time Taken Comments Blood Pressure 116/86 02/21/2024 10:35 AM CDT Pulse 100 02/21/2024 10:35 AM CDT Temperature 39.4 ??C (102.9 ??F) 06/23/2020 1:[address] Respiratory Rate 16 06/05/2018 8:32 AM BACTERIOLOGY TECHNICIAN Oxygen Saturation 98% 11/09/2022 10:15 AM CDT Inhaled Oxygen Concentration - - Weight 48.7 kg (107 lb 6.4 oz) 02/21/2024 10:35 AM CDT Height 156.5 cm (5' 1.61) 02/21/2024 10:35 AM C DT Body Mass Index 19.89 02/21/2024 10:35 AM CDT Plan of Treatment Health Maintenance Due Date Last Done Comments HIV for age 15-65 2017 Hepatitis C screening for age 18-79 2020 Chlamydia for age 16-24 03/02/2021 03/02/20 20, 03/27/2019, 09/02/2018 Pap test for age 21-65 2023 Depression screening for age 12+ 11/10/2023 11/09/2022, 03/02/2020, 09/02/2018, Additional history exists Tetanus booster 01/14/2024 01/13/2014 COVID-19 vaccine series ( season) 2024 11/15/2020, 10/25/2020 Influenza for age 9-49 02/09/2024 4, 06/21/2009, 04/26/2009, Additional history exists BMI (ht and wt on same day) for age 18+ 02/20/2025 02/21/2024, 07/04/2020 Tdap Completed 01/13/2014 HPV series for age [...] Maintenance Results * GC CHLAMYDIA TRACH PROBE [[id number]] (urine, or cervical or urethral swab) (03/02/2020 3:23 PM CDT) CHLAMYDIA PROBE Negative 0 12:16 PM CDT [facility] N GONORRHOEAE PROBE Negative 03/03/2020 12:16 PM CDT [facility] Other URINE SPECIMEN / Unknown Non-Blood / Unknown 03/02/2020 3:23 PM CDT 03/02/2020 3:23 PM CDT Dawn Roy DO MICROBIOLOGY [facility] [employer] [facility] [address] [place] [address], from Last 3 Months or Most Recently Relevant to Health Maintenance Care Teams Ob Gyn Relationship Specialty Start Date End Date Dawn Roy DO [address] [facility] [address] [place] [address] PCP - General Family Practice 01/02/18
--- OUTSIDE RECORDS SUMMARY | 2024-04-10 09:08 | XMS_ITS | Referral Summary ---
Author Organization [facility] Address [address] [place] [address] Care Team Providers Care Corrective Therapy Aide Name Role Phone Elsewhere, Pcp Primary Care Provider Unavailabl e Source Comments Patient records contain information from all sites at [facility]. For routine questions regarding patient records, call [phone] during business hours, M-F 8:00 AM - 5:00 PM Central Time. Record requests for emergency care only can be directed to [phone] at any time.[facility] Allergies Active Allergy Reactions Criticality Noted Date [...] - Plan of Treatment Not on file Insurance [facility] Care Teams Corrective Therapy Aide Relationship Specialty Start Date End Date Elsewhere, Pcp PCP - General Internal Medicine 12/09/22
--- OUTSIDE RECORDS SUMMARY | 2024-04-10 09:08 | XMS_ITS | Encounter Summary ---
Author Organization [place] Address [address] [place] [address]. [place] [address] Care Team Providers Care Sailing Officer Name Role Phone Clinic, Wei Roche Primary Care Provider [phone] Reason for Visit * Reason Comments Ingestion Encounter Details Date Type Department Care Team (Late st Contact Info) Description 01/11/2024 4:18 AM CDT - 01/11/2024 8:24 AM CDT Emergency [facility] Emergency Dept [address] [place] [address] Saima Singh MD [facility] [address] [place], [place] [phone] Walter Carranza MD [address] PAUL [address] [place] [id number] Altered mental status, unspecified altered mental status type; Alcoholic intoxication without complication (H) Discharge Disposition: Home or Self Care Social History Tobacco Use Types Packs/Day Years Used Date Smoking Tobacco: Never Assessed Adolescent Education Answer Date Record ed Getting School Help Needed Not on file 03/26 Comments No Sex and Gender Information Value Date Recorded Sex Assigned at Not on file Legal Sex Female 4:34 AM CLIENT SUCCESS MANAGER Gender Identity Not on file Sexual Orientation [...] History and Problem List Asthma Medications, historic: [place] Medrol dosepak Sertraline Physical Exam Patient Vitals [...] at 0540 Sinus tachycardia Rate 106 bpm. NC interval 164 ms. QRS duration 72 ms. [...] Documentation None Medical Decision Making / Diagnosis [facility] Diagnoses: None MIPS None MDM Sam rOdoñez is a 23 year old female presenting [...] Prescriptions No medications on file Scribe Disclosure: I, Britney Montoya, am serving as a scribe at 5:41 [...] and was discharged. Walter Carranza MD 01/11/24 0752 documented in this encounter Plan of Treatment Not on file documented as of this encounter Procedures Procedure [...] CDT documented in this encounter Results * EKG 12-lead, tracing only (01/11/2024 5:35 AM CDT) Systolic Blood Pressure mmHg RADIOLOGY RESULTS Diastolic Blood Pressure mmHg RADIOLOGY RESULTS Ventricular Rate 106 BPM RAD IOLOGY RESULTS Atrial Rate 106 BPM RADIOLOG Y RESULTS NC Interval 164 ms RADIOLOG Y RESULTS QRS Duration 72 ms RADIOLO GY RESULTS QT 352 ms RADIOLOGY RESULTS QTc 467 ms RADIOLOGY RESULTS P [place] 75 degrees RADIOLOGY RESULTS R AXIS 73 degrees RADIOLOGY RESULTS T [place] 77 degrees RADIOLOGY RESULTS Interpretation ECG Sinus tachycardia Otherwise normal ECG No previous ECGs available Confirmed by - EMERGENCY ROOM, PHYSICIAN ([id number]), visual effects editor DEBO SAUER ([id number]) on 01/13/2024 7:11:58 AM RADIOLOGY RESULTS 01/11/2024 5:35 AM CDT 01/13/2024 7:11 AM CDT us Saima Singh MD ECG ORDERABLES Edited Result - Final RADIOLOGY RESULTS * CBC with platelets and differential (01/11/2024 [...] 5:34 AM CDT 01/11/2024 5:40 AM CDT us Jazmin Thurman DO LAB - BLOOD ORDERABLES Fin al Result [facility] Acute [facility] Lab [address] Lab (1st floor, no room number) [place] [address] * HCG QUALitative (blood) (01/11/2024 5:34 AM CDT) hCG Serum Qualitative Negative Negative MARISELA 01/11/2024 6:15 AM CDT [facility] Comment:This test is for scr eening purposes. Results should be interpreted along with the clinical picture. Confirmation testing is available if warranted by ordering [id number], HCG Quantitative . Blood STRUCTURE OF RIGHT UPPER LIMB / Unknown Venipuncture / Unknown 01/11/2024 5:34 AM CDT 01/11/2024 5:40 AM CDT us Saima Singh MD LAB - BLOOD ORDERABLES Final Result [facility] Lab [address] Lab (1st floor, no room number) [place] [address] * Hepatic function panel (01/11/2024 [...] CDT Saima Singh MD LAB - BLOOD ORDERABLES Final Result LABORATORY [facility] Acute Care Lab [address] Lab (1st floor, no room number) [place] [address] * Salicylate level (01/11/2024 5:34 AM CDT) Salicylate <0.3 mg/dL 01/11/2024 7:43 AM CDT [facility] Comment: Salicylate Reference Range Therapeutic: ? 3-10 mg/dL Anti inflammatory: 15-30 mg/dL Blood STRUCTURE OF RIGHT UPPER LIMB / Unknown Venipuncture / Unknown 01/11/2024 5:34 AM CDT 01/11/2024 6:19 AM CDT Jazmin Thurman DO LAB - BLOOD ORDERABLES Fin al Result Performing Organization Address City/[facility]/ZIP Co de Phone Number [facility] Lab [address] Lab (1st floor, no room number) [place] [phone] [place] [address] * (ABNORMAL) Acetaminophen level (01/11/2024 5:34 AM CDT) Acetaminophen <5.0(L) 10.0 - 30.0 ug/mL 01/11/2024 7:43 AM CDT LABORATORY Blood STRUCTURE OF RIGHT UPPER LIMB / Unknown Venipuncture / Unknown 01/11/2024 5:34 AM CDT 01/11/2024 6:19 AM CDT Jazmin Thurman DO LAB - BLOOD ORDERABLES Fin al Result Performing Organization Address [facility] Co de Phone Number [facility] Lab [address] Lab (1st floor, no room number) [place] [phone] [place] [address] * (ABNORMAL) Alcohol level blood (01/11/2024 5:34 AM CDT) Alcohol ethyl 0.24(H) <=0.01 g/dL 01/11/2024 6:02 AM CDT LABORATORY Blood STRUCTURE OF RIGHT UPPER LIMB / Unknown Venipuncture / Unknown 01/11/2024 5:34 AM CDT 01/11/2024 5:40 AM CDT Jazmin Thurman DO LAB - BLOOD ORDERABLES Fin al Result Performing Organization Address City/[facility]/ZIP Co de Phone Number [facility] Lab [address] Lab (1st floor, no room number) [place] [phone] [place] [address] * (ABNORMAL) Basic metabolic panel (01/11/2024 5:34 AM CDT) Sodium 143 135 - 145 mmol/L 01/11/2024 6:02 AM CDT [facility] Potassium 3.7 3.4 - 5.3 mmol/L [...] 6:02 AM CDT LABORATORY Comment:eGFR calculated usin g 2020 CKD-EPI equation. Calcium 8.5(L) 8.8 - [...] 5:34 AM CDT 01/11/2024 5:40 AM CDT us Jazmin hTurman DO LAB - BLOOD ORDERABLES Fin al Result LABORATORY [facility] Acute Care Lab [address] Lab (1st floor, no room number) [place] [address], [facility] documented in this encounter Visit Diagnoses Diagnosis Altered mental status, unspecified altered mental status type Alcoholic intoxication without complication (H) documented in this encounter Care Teams Sailing Officer Relationship Specialty Start Date End Date Eulalio, Wei Roche [address] [place] [phone] PCP - General 01/11/24 documented as of this encounter
--- OUTSIDE RECORDS SUMMARY | 2024-04-10 09:08 | XMS_ITS | Referral Summary ---
Author Organization [place] Address [address] [place] [address]. [place] [address] Care Team Providers Care Occupational Therapy Manager Name Role Phone Clinic, Wei Roche Primary Care Provider Encounters Date Type Department Care Team Description 01/11/2024 Travel 01/11/2024 4:18 AM CDT - 01/11/2024 8:24 AM CDT Emergency [facility] Emergency Dept [address] [place] [address] Saima Singh MD McRoberts, Sean Edward, MD Altered mental status, unspecified altered mental status type; Alcoholic intoxication without complication (H) Discharge Disposition: Home or Self Care from [...] on file Legal Sex Female 4:34 AM LEGAL EXECUTIVE Gender Identity Not on file Sexual Orientation [...] CDT from Last 3 Months Results * EKG 12-lead, tracing only (01/11/2024 5:35 AM CDT) Systolic Blood Pressure mmHg RADIOLOGY RESULTS Diastolic Blood Pressure mmHg RADIOLOGY RESULTS Ventricular Rate 106 BPM RAD IOLOGY RESULTS Atrial Rate 106 BPM RADIOLOG Y RESULTS [place] Interval 164 ms RADIOLOG Y RESULTS QRS Duration 72 ms RADIOLO GY RESULTS QT 352 ms RADIOLOGY RESULTS QTc 467 ms RADIOLOGY RESULTS P [place] 75 degrees RADIOLOGY RESULTS R AX[place] 73 degrees RADIOLOGY RESULTS T [place] 77 degrees RADIOLOGY RESULTS Interpretation ECG Sinus tachycardia Otherwise normal ECG No previous ECGs available Confirmed by - EMERGENCY ROOM, PHYSICIAN ([id number]), newspaper editor DEBO SAUER ([id number]) on 01/13/2024 7:11:58 AM RADIOLOGY RESULTS 01/11/2024 5:35 AM CDT 01/13/2024 7:11 AM CDT us Saima Singh MD ECG ORDERABLES Edited Result - Final RADIOLOGY RESULTS * CBC with platelets and differential (01/11/2024 5:34 AM CDT) [facility] Signature WBC Count 6.9 4.0 - 11.0 10e3/uL [...] - BLOOD ORDERABLES Fin al Result LABORATORY [facility] Lab [address] Lab (1st floor, no room number) [address] [place] [address] * Salicylate level (01/11/2024 5:34 AM CDT) Salicylate <0.3 mg/dL 01/11/2024 7:43 AM CDT [facility] Comment: Salicylate Reference Range Therapeutic: ? 3-10 mg/dL Anti inflammatory: 15-30 mg/dL Blood STRUCTURE OF RIGHT UPPER LIMB / Unknown Venipuncture / Unknown 01/11/2024 5:34 AM CDT 01/11/2024 6:19 AM CDT Jazmin Thurman DO LAB - BLOOD ORDERABLES Fin al Result [facility] Acute Care Lab [address] Lab (1st floor, no room number) [place] [phone] [place] [address] * Hepatic function panel (01/11/2024 5:34 AM [...] MD LAB - BLOOD ORDERABLES Final Result Performing Organization Address City/[facility]/ZIP Co de Phone Number [facility] Lab [address] Lab (1st floor, no room number) [place] [phone] * HCG QUALitative (blood) (01/11/2024 5:34 AM CDT) Pathologist [facility] Emergency Department hCG Serum Qualitative Negative Negative MARISELA 01/11/2024 6:15 AM CDT [facility] Comment:This test is for scr eening purposes. Results should be interpreted along with the clinical picture. Confirmation testing is available if warranted by ordering [id number], HCG Quantitative . Blood STRUCTURE OF RIGHT UPPER LIMB / Unknown Venipuncture / Unknown 01/11/2024 5:34 AM CDT 01/11/2024 5:40 AM CDT us Saima Singh MD LAB - BLOOD ORDERABLES Final Result [facility] Care Lab [address] Lab (1st floor, no room number) [place] [address] * (ABNORMAL) Alcohol level blood (01/11/2024 5:34 AM CDT) Alcohol ethyl 0.24(H) <=0.01 g/dL 01/11/2024 6:02 AM CDT LABORATORY Blood STRUCTURE OF RIGHT UPPER LIMB / Unknown Venipuncture / Unknown 01/11/2024 5:34 AM CDT 01/11/2024 5:40 AM CDT Jazmin Thurman DO LAB - BLOOD ORDERABLES Fin al Result Performing Organization Address [facility] Co de Phone Number [facility] Acute Care Lab [address] Lab (1st floor, no room number) [place] [address] * (ABNORMAL) Acetaminophen level (01/11/2024 5:34 AM CDT) Pathologist [facility] Emergency Department Acetaminophen <5.0(L) 10.0 - 30.0 ug/mL 01/11/2024 7:43 AM CDT LABORATORY Blood STRUCTURE OF RIGHT UPPER LIMB / Unknown Venipuncture / Unknown 01/11/2024 5:34 AM CDT 01/11/2024 6:19 AM CDT Jazmin Thurman DO LAB - BLOOD ORDERABLES Fin al Result Performing Organization Address [facility] [address] [facility] de Phone Number [facility] Care Lab [address] Lab (1st floor, no room number) [place] [phone] * (ABNORMAL) Basic metabolic panel (01/11/2024 [...] 6:02 AM CDT [facility] Comment:eGFR calculated usin g 2020 CKD-EPI [...] - BLOOD ORDERABLES Fin al Result LABORATORY [facility] Acute Care Lab [address] Lab (1st floor, no room number) [place] [address], [facility] from Last 3 Months Insurance [employer] Care Teams Occupational Therapy Manager Relationship Specialty Start Date End Date Clinic, Wei Roche [address] [place] [phone] PCP - General 01/11/24
--- OUTSIDE RECORDS SUMMARY | 2024-04-10 09:08 | XMS_ITS ---
Author Organization [facility] Address [address] [place] [address] Care Team Providers Care Pastry Cook Name Role Phone Unavailable Unavailable Unavailable Surgery Details Not on file Complications Check Surgery Details section. Procedure Estimated Blood Loss Check Surgery Details section. Procedure Findings Check Surgery Details section. Procedure Specimens Taken Check Surgery Details section.
--- OUTSIDE RECORDS SUMMARY | 2024-04-10 09:08 | XMS_ITS | Clinical Summary ---
Author Organization [facility] Address [address] [place] [address]. [place] [address] Care Team Providers Care Metal Leaf Layer Name Role Phone Clinic, Wei Roche Primary Care Provider Allergies Active Allergy Reactions Criticality Noted Date Comments Azithromycin Rash Low 07/04/2020 Medications No known medications Encounters Date Type Department Care Team Description 01/11/2024 4:18 AM CDT - 01/11/2024 8:24 AM CDT Emergency [facility] Emergency Dept [address] [place] [phone] Saima Singh MD McRoberts, Walter Negron MD Altered mental status, unspecified altered mental status type; Alcoholic intoxication without complication (H) Discharge Disposition: Home or Self Care 01/11/2024 Travel from Last 3 Months Social History Tobacco Use Types Packs/Day Years Used Date Smoking Tobacco: Never Assessed Adolescent Education Answer Date Record ed Getting School Help Needed Not on file 03/26 Comments No Sex and Gender Information Value Date Recorded Sex Assigned at Not on file Legal Sex Female 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 Gender Identity Not on file Sexual Orientation [...] 03/02/2021 03/02/2020 YEARLY PREVENTIVE VISIT 03/02/2021 03/02/2020 PHQ-2 (once per calendar year) 2023 PAP 2023 DTAP/TDAP/TD IMMUNIZATION (7 - Td or Tdap) 01/14/2024 01/13/2014, 01/22/2008, 12/15/2003, Additional history exists COVID-19 Vaccine ( season) 2024 11/15/2020, 10/25/2020 INFLUENZA VACCINE (#1) 2024 4, 06/21/2009, 04/26/2009, Additional history exists RSV VACCINE (1 - 1-dose 75+ series) 2077 HEPATITIS B IMMUNIZATION Completed 003, 2002, 2002 HPV IMMUNIZATION Completed 03/03/2018, , 01/13/2014 MENINGITIS [...] Atrial Rate 106 BPM RADIOLOG Y RESULTS [place] Interval 164 ms RADIOLOG Y RESULTS QRS Duration 72 ms RADIOLO GY RESULTS QT 352 ms RADIOLOGY RESULTS QTc 467 ms RADIOLOGY RESULTS P [place] 75 degrees RADIOLOGY RESULTS R [place] 73 degrees RADIOLOGY RESULTS T [place] 77 degrees RADIOLOGY RESULTS Interpretation ECG Sinus tachycardia Otherwise normal ECG No previous ECGs available Confirmed by - EMERGENCY ROOM, PHYSICIAN ([id number]), film and video editor DEBO SAUER ([id number]) on 01/13/2024 7:11:58 AM RADIOLOGY RESULTS 01/11/2024 5:35 AM CDT 01/13/2024 7:11 AM CDT Saima Singh MD ECG ORDERABLES Edited Result [...] ORDERABLES Fin al Result Performing Organization Address City/State/[facility] Co de Phone Number LABORATORY [facility] Acute Care Lab [address] Lab (1st floor, no room number) [place] [phone] * Salicylate level (01/11/2024 5:34 AM CDT) Salicylate <0.3 mg/dL 01/11/2024 7:43 AM CDT [facility] Comment: Salicylate Reference Range Therapeutic: ? 3-10 mg/dL Anti inflammatory: 15-30 mg/dL Blood STRUCTURE OF RIGHT UPPER LIMB / Unknown Venipuncture / Unknown 01/11/2024 5:34 AM CDT 01/11/2024 6:19 AM CDT Jazmin Thurman DO LAB - BLOOD ORDERABLES Fin al Result Performing Organization Address [facility] Co de Phone Number LABORATORY [facility] Acute Care Lab [address] Lab (1st floor, no room number) [place] [phone] * Hepatic function panel (01/11/2024 [...] MD LAB - BLOOD ORDERABLES Final Result [facility] Care Lab [address] Lab (1st floor, no room number) [place] [address] * HCG QUALitative (blood) (01/11/2024 5:34 AM CDT) hCG Serum Qualitative Negative Negative MARISELA 01/11/2024 6:15 AM CDT LABORATORY Comment:This test is for scr eening purposes. Results should be interpreted along with the clinical picture. Confirmation testing is available if warranted by ordering [id number], HCG Quantitative . Blood STRUCTURE OF RIGHT UPPER LIMB / Unknown Venipuncture / Unknown 01/11/2024 5:34 AM CDT 01/11/2024 5:40 AM CDT Saima Singh MD LAB - BLOOD ORDERABLES Final Result Performing Organization Address [facility]/ZIP Co de Phone Number [facility] Lab [address] Lab (1st floor, no room number) [place] [phone] [place] [address] * (ABNORMAL) Alcohol level blood (01/11/2024 5:34 AM CDT) Alcohol ethyl 0.24(H) <=0.01 g/dL 01/11/2024 6:02 AM CDT LABORATORY Blood STRUCTURE OF RIGHT UPPER LIMB / Unknown Venipuncture / Unknown 01/11/2024 5:34 AM CDT 01/11/2024 5:40 AM CDT Jzamin Thurman DO LAB - BLOOD ORDERABLES Fin al Result [facility] Care Lab [address] Lab (1st floor, no room number) [place] [phone] * (ABNORMAL) Acetaminophen level (01/11/2024 5:34 AM CDT) Acetaminophen <5.0(L) 10.0 - 30.0 ug/mL 01/11/2024 7:43 AM CDT LABORATORY Blood STRUCTURE OF RIGHT UPPER LIMB / Unknown Venipuncture / Unknown 01/11/2024 5:34 AM CDT 01/11/2024 6:19 AM CDT us Jazmin Thurman DO LAB - BLOOD ORDERABLES [facility] al Result LABORATORY [facility] Acute Care Lab [address] [facility] Lab (1st floor, no room number) [place] [address] * (ABNORMAL) Basic metabolic panel (01/11/2024 5:34 [...] - BLOOD ORDERABLES Fin al Result LABORATORY [facility] Acute Care Lab [address] Lab (1st floor, no room number) [place] [address], [facility] from Last 3 Months Insurance [employer] Care Teams Metal Leaf Layer Relationship Specialty Start Date End Date Clinic, eWi Roche [address] [place] [address] TRA Roche [phone] PCP - General 01/11/24
--- OUTSIDE RECORDS SUMMARY | 2024-04-10 09:08 | XMS_ITS | Encounter Summary ---
Author Organization [place] Address [address] [place] [address]. [place] [address] Care Team Providers Care Assistant Restaurant General Manager Name Role Phone Wei Tsai Primary Care Provider [phone] Encounter Details Date Type Department Care Team (Latest Contact Info) Description 01/11/2024 Travel Social History Tobacco Use Types Packs/Day Years Used Date Smoking Tobacco: Never Assessed Adolescent Education Answer Date Record ed Getting School Help Needed Not on file 03/26 Comments No Sex and Gender Information Value Date Recorded Sex Assigned at Not on file Legal Sex Female 4:34 AM [employer] Gender Identity Not on file Sexual Orientation Not on file documented as of this encounter Plan of Treatment Not on file documented as of this encounter Visit Diagnoses Not on filedocumented in this encounter Care Teams Assistant Restaurant General Manager Relationship Specialty Start Date End Date Wei [facility] [place] [address] PCP - General 01/11/24 documented as of this encounter
--- NOTE | 2024-04-10 09:15 | CRLHL7_ITS ---
For Patients: As a result of the Century Cures Act, medical imaging exams and procedure reports are released immediately into your electronic medical record. You may view this report before your referring provider. If you have questions, please contact your health care provider. BILATERAL BREAST ULTRASOUND CLINICAL HISTORY: BILATERAL breast lumps. COMPARISON: None available. TECHNIQUE: Real-time ultrasound imaging of BILATERAL breasts with imaging documentation. FINDINGS: Targeted RIGHT breast ultrasound performed in the area of concern at 12 o`clock 4 cm from the nipple. In this location, normal dense fibroglandular tissue is present. Targeted LEFT breast ultrasound performed in the area of concern at 5 o`clock 1 cm from the nipple. A solid circumscribed mass is present with hypoechoic internal echotexture and slight distal acoustic enhancement measuring 1.9 x 0.8 x 1.7 cm. IMPRESSION: 1. Benign fibroadenoma LEFT breast 5 o`clock 1 cm from the nipple measuring 1.9 x 0.8 x 1.7 cm. 2. Normal RIGHT breast ultrasound. RECOMMENDATIONS: Clinical follow-up. Results and recommendations were discussed with the patient at the time of the exam. BI-RADS Category 2: Benign A lay language report of this examination will be provided to the patient. Dictated by Addi Danielson MD @ 04/10/2024 11:04:14 AM j/Dictated by: Addi Danielson MD @ 04/10/2024 11:04:00 AM (Electronically Signed)
== END 2024-04-10 09:05 | disposition home or self-care (01) ==
LOC: US 09:05
PROVIDERS: Visit Provider Registered Nurse
DX: N63.20 Unspecified lump in the left breast, unspecified quadrant (principal); D24.2 Benign neoplasm of left breast; N63.10 Unspecified lump in the right breast, unspecified quadrant
CPT/HCPCS: 76642

== ENCOUNTER 2024-12-14 20:26 | Emergency (ER) | payer OTHER, SELFPAY ==
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
--- OUTSIDE RECORDS SUMMARY | 2024-12-14 20:28 | XMS_ITS | Clinical Summary ---
Author Organization [facility] Address [address], [place] [address] Care Team Providers Care Garment Patternmaker Name Role Phone Unassigned, Provider Primary Care Provider Unava ilable Source Comments You are receiving this document as you are listed as the primary care provider,follow-up provider, or the patient has been referred to you for consultation.This is in compliance with the Medicare andMedicaid EHR Incentive Program,which states Providers who transition their patient to another setting of careor provider of care or refers their patient to another provider of care shouldprovide summary care record for each transition of care or referral. [facility] Allergies No known active allergies Medications escitalopram (LEXAPRO) 10 MG tablet Take 1 Tablet (10 mg) by mouth every morning. 11/09/2024 Active prazosin (MINIPRESS) 1 MG capsule Take 1 Capsule (1 mg) by mouth daily at bedtime. 09/05/2024 Active naltrexone (REVIA) 50 MG tablet Take by mouth. 11/09/2024 Active hydrOXYzine HCl (ATARAX) 25 MG tablet Take 2 Tablets (50 mg) by mouth at bedtime as needed. 08/27/2024 Active methocarbamol (ROBAXIN) 500 MG tablet Take 1 Tablet (500 mg) by mouth two times a day for 10 days. 20 Tablet 11/27/2024 12/08/19 25 Active Problems No known active problems Encounters Date Type Department Care Team Description 11/27/2024 2:40 PM CDT Office Visit [place] [address] [facility] [id number] [place] [phone] Jeyson Estrada MD Acute low back pain without sciatica, unspecified back pain laterality from Last 3 Months Social History Tobacco [...] Date Last Done Comments Cervical Cancer Screening Due 2002 Hep C Screening (Preventive Services) 2002 MenB Immunization Discussion 2002 HIV Screening (Preventive Services) 2018 Adult Preventive Visit 2020 Chlamydia 03/02/2021 03/02/2020 HepB Vaccine (1) 2021 COVID-19 Vaccine ( season) 2024 11/15/2020, 10/25/2020 Influenza Vaccine (#1) 2025 02/24/2014, 2007 DTaP/Tdap/Td Vaccine (8 - Tdap) 04/24/2034 04/24/2024, 01/13/2014, 01/22/2008, Additional history exists Zoster/Shingles Vaccine (1 of 2) 2052 IPV (Polio) Vaccine Completed 01/22/2008, 2002, 2002, Additional history exists HPV Vaccine Completed 03/03/2018, 02/08, 01/13/2014 HepA Vaccine Completed 03/03/2018, 01/13/2014 MCV4 Vaccine Completed 09/02/2018, 01/13/2014 Hib Vaccine Aged Out No longer eligi ble based on patient's age to complete this topic Pneumococcal Vaccine Aged Out No long er eligible based on patient's age to complete this topic Insurance FULLY INSURED FULLY INSURED Care Teams Garment Patternmaker Relationship Specialty Start Date End Date Unassigned, Provider [address] [place] [id number] PCP - General 02
--- OUTSIDE RECORDS SUMMARY | 2024-12-14 20:28 | XMS_ITS | Clinical Summary ---
Author Organization [facility] Address [address] [place] [address]. [place] [address] Care Team Providers Care Timber Feller Name Role Phone Clinic, [facility] Primary Care Provider Allergies Active Allergy [...] on file Legal Sex Female 4:34 AM SOCIAL MEDIA DEVELOPER Gender Identity Not on file Sexual Orientation Not on file Last Filed Vital Signs Vital Sign Reading Time Taken Comments Blood Pressure 123/92 01/11/2024 8:10 AM CDT Pulse 117 01/11/2024 5:00 AM CDT Temperature 36.7 C (98 F) 01/11/2024 4:23 AM CDT Respiratory Rate 16 01/11/2024 8:10 AM CDT Oxygen Saturation 99% 01/11/2024 8:10 AM CDT Inhaled Oxygen Concentration - - Weight - - Height - - Body Mass Index - - Plan of Treatment Health Maintenance Due Date Last Done Comments ADVANCE CARE PLANNING 2002 ANNUAL REVIEW OF HM ORDERS 2002 HIV SCREENING 2017 MENINGITIS B VACCINE (1 of 2 - Standard) 2018 HEPATITIS C SCREENING 2020 CHLAMYDIA SCREENING 03/02/2021 03/02/2020 YEARLY PREVENTIVE VISIT 03/02/2021 03/02/2020 PAP 2023 DTAP/TDAP/TD VACCINE (7 - Td or Tdap) 01/14/2024 01/13/2014, 01/22/2008, 12/15/2003, Additional history exists COVID-19 VACCINE ( season) 2024 11/15/2020, 10/25/2020 PHQ-2 (once per calendar year) 2024 INFLUENZA VACCINE (Season Ended) 2025 02/24/2014, 06/21/2009, 04/26/2009, Additional history exists ZOSTER VACCINE (1 of 2) 2052 HEPATITIS B VACCINE Completed 2002, 2002, 2002 HPV VACCINE Completed 03/03/2018, 02/08, 01/13/2014 MENINGITIS VACCINE Completed 09/02/2018, 01/13/2014 PNEUMOCOCCAL VACCINE: PEDIATRICS (0 to 5 YEARS) AND AT-RISK PATIENTS (6 to 49 YEARS) Aged Out No longer eligible based on patient's age to complete this topic Insurance [employer] Care Teams Timber Feller Relationship Specialty Start Date End Date Clinic, [facility] [address] [place] [address] [place] [phone] PCP - General 01/11/24
--- OUTSIDE RECORDS SUMMARY | 2024-12-14 20:28 | XMS_ITS | Clinical Summary ---
Author Organization [facility] Address [address] [place] [address] Care Team Providers Care Dry Kiln Loader Name Role Phone Judah Mejia CREDIT AND COLLECTIONS REPRESENTATIVE Primary Care Provider [phone] Allergies Active Allergy Reactions Criticality Noted Date Comments Azithromycin Rash Low 07/04/2020 Medications prazosin 1 mg capsule Take 1 mg by mouth three times daily. Active prazosin 2 mg capsule Take 2 mg by mouth three times daily. Active hydrOXYzine HCL 25 mg tablet Take 25 mg by mouth three times daily. Active naltrexone 50 mg tabletIndicatio ns:Alcohol use Take 0.5 Tablets (25 mg) by mouth once daily. 45 Tablet 1 11/09/2024 Active escitalopram oxalate 10 mg tabletIndicatio ns:Depression, recurrent,Anxie ty Take 1 Tablet (10 mg) by mouth once daily in the morning. 90 Tablet 3 11/09/2024 Active drospirenone-et hinyl estradioL 3-0.02 mg tabletIndicatio ns: control counseling Take 1 Tablet by mouth once daily. 84 Tablet 3 12/10/2024 Active Active Problems Problem Noted Date Diagnosed Date Closed fracture of third tho racic vertebra with routine healing 05/06/2024 1st degree AV block 05/04/2019 Breast lump, left 10/22/2018 Overview (10/22/2018): 5/15/19 Breast Ultrasound: The LEFT breast lump along the 1 o'clock radian 3 cm from the nipple corresponds to a circumscribed solid, hypoechoic mass measuring 4.5 x 2.2 x 4.3 cm. The long axis parallels the skin surface. There is increased through-transmission. This most likely represents a benign fibroadenoma. IMPRESSION: Probable benign fibroadenoma. Options include either ultrasound-guided biopsy or surgical excision. Resolved Problems Problem Noted Date Diagnosed Date Resolved Date Otitis media 09/25/2009 Mild intermittent asthma 07/2024 Encounters Date Type Department Care Team Description 12/14/2024 Nurse Triage [facility] [address] [place] [address] Judah Mejia, YONI Urinary Problem 12/10/2024 11:30 AM CDT Telemedicine [facility] [address] [facility] [address] [place] [address] Judah Mejia, YONI Medication Management 11/09/2024 2:30 PM CDT Office Visit [facility] [address] [place] [address] Judah Mejia, YONI Medication Management 11/09/2024 Travel from Last 3 Months Immunizations Immunization Administration Dates Next Due COVID-19 vaccine ([employer] NTNarvar 30mcg/0.3mL) PF, MDV 11/15/2020,10/25/2020 DTaP 01/22/2008,12/15/2003 [id number]-LFP (Pediarix) 2002,2002,0 2002 HIB PRP-T (ActHIB,Hiberix) 12/15/2003,,2002,08/28 HPV 9 (Gardasil 9) 03/03/2018 Hepatitis A (Peds) 03/03/2018,01/13/2014 Human Papilloma Virus Vaccine 02/24/2014, 014 Inactivated Polio Vaccine 01/22/2008 Influenza A (H1N1), Inactivated 06/21/2009,04/26 Influenza, IIV3 (Age >=3 years) 04/26/2008 Influenza, IIV4 02/24/2014 MENINGOCOCCAL VACCINE 2 VIAL 2MO-55YO (MENVEO) 09/02/2018,01/13/2014 MMR 01/22/2008,07/15/2003 Tdap 04/24/2024,01/13/2014 Varicella Vaccine 04/26/2008,07/15/2003 Family History Medical History [...] Not Answered Alcohol Use Standard Drinks/Week Comments Not Currently 0 (1 standard drink = 0.6 oz pur e alcohol) occ PHQ-2 Answer Date Recorded PHQ-2 TOTAL SCORE 0 12/10/2024 Social Connections Answer Date Recorded Do you often feel lonely or isolated from those around you? 0 06/04/2024 Financial Resource Strain Answer Date R ecorded Difficulty of Paying Living Expenses 3 06/04/2024 Difficulty of Paying Living Expenses Not on file 06/04/2024 Food Insecurity Answer Date Recorded Do you worry your food will run out before you are able to buy more? 1 06/04/2024 Transportation Needs Answer Date Record ed Does lack of transportation keep you from medica l appointments? 1 06/04/2024 Does lack of transportation keep you from work, meetings or getting things that you need? 1 06/04/2024 Housing Stability Answer Date Recorded What is your housing situation today? 1 06/04/2024 Utilities Answer Date Recorded Do you have trouble paying f or utilities (for example, heat, electricity, water, phone)? 1 06/04/2024 Comments No Sex and Gender Information Value Date Recorded Sex Assigned at Not on file Legal Sex Female 6:29 AM PRESSURE CONTROLLER Gender Identity Not on file Sexual Orientation Not on file Obstetrics History Para Term AB IAB SAB Ectopic Multiple Livin g Live Births 0 0 0 0 0 0 0 0 0 0 0 Last Filed Vital Signs Vital Sign Reading Time Taken Comments Blood Pressure 104/76 11/09/2024 2:36 PM CDT Pulse 92 11/09/2024 2:36 PM CDT Temperature 39.4 C (102.9 F) 06/23/2020 1:16 PM PRESSURE CONTROLLER Respiratory Rate 16 06/05/2018 8:32 AM PRESSURE CONTROLLER Oxygen Saturation 99% 11/09/2024 2:36 PM CDT Inhaled Oxygen Concentration - - Weight 51.7 kg (114 lb) 11/09/2024 2:36 PM CDT Height 157.5 cm (5' 2.01) 05/20/2024 1:12 PM CS T Body Mass Index 20.85 05/20/2024 1:12 PM PRESSURE CONTROLLER Plan of Treatment Upcoming Encounters Date Type Department Care Team (Late st Contact Info) Description 12/15/2024 11:40 AM CDT Office Visit [facility] [address] [facility] [address] [place] [address] Bg Escobar, MARIO [address] [facility] [address] [place] [id number] Health Maintenance Due Date Last Done Comments HIV for age 15-65 2017 Hepatitis C screening for ag e 18-79 2020 Chlamydia for age 16-24 03/02/2021 03/02/20 20, 03/27/2019, 09/02/2018 Pneumococcal series for age 6-49 (1 of 2 - PCV) 2021 Pap test for age 21-65 2023 COVID-19 vaccine series ( - 2023- season) 2024 11/15/2020, 10/25/2020 Influenza Vaccine (#1) 2025 02/24/2014, 2007 BMI (ht and wt on same day) for age 18+ 05/20/2025 05/20/2024, 05/05/2024, 02/21/2024, Additional history exists Depression screening for age 12+ 12/10/2025 12/10/2024, 11/09/2024, 05/08/2024, Additional history exists Tetanus booster 04/24/2034 04/24/2024, 01/13/2014 Hepatitis B series for 19+ Completed 12/30, 2002, 2002 HPV series for age 9-26 Completed 03/03/20 18, 02/24/2014, 01/13/2014 Procedures Procedure Name Priority Date/Time Associated Diagnosis Comments GC CHLAMYDIA TRACH PROBE Routine 03/02/2020 3:23 PM CDT Screening examination for STD (sexually transmitted disease) from Last 3 Months or Most Recently Relevant to Health Maintenance Results * GC CHLAMYDIA TRACH PROBE [[id number]] (urine, or cervical or urethral swab) (03/02/2020 3:23 PM CDT) CHLAMYDIA PROBE Negative 0 12:16 PM CDT [facility] N GONORRHOEAE PROBE Negative 03/03/2020 12:16 PM CDT [facility] Other URINE SPECIMEN / Unknown Non-Blood / Unknown 03/02/2020 3:23 PM CDT 03/02/2020 3:23 PM CDT us Dawn Roy DO MICROBIOLOGY Final Result [facility] [address] [place] [address], [place] from Last 3 Months or Most Recently Relevant to Health Maintenance Insurance [place] [address] [id number] [place] [id number] [employer] [place] [id number] Care Teams Dry Kiln Loader Relationship Specialty Start Date End Date Judah Mejia NP [address] [place] [address] [place] [address] PCP - General Nurse Practitioner - Family 11/09/24
[2024-12-14 20:58] VITALS: BP 123/82; PULSE 70; RESP 16; TEMP 36.4; O2SAT 97; BMI 20.8
[2024-12-14 21:40] LABS: Appearance Urine Cloudy (Clear)
--- NOTE | 2024-12-14 22:26 | ED.FEMALEGU ---
HPI - Female Genitourinary General Date Seen: 12/14/24 Stated complaint: UTI symptoms Time Seen by Provider: 12/14/24 21:51 Source: patient Mode of arrival: ambulatory Limitations: no limitations History of Present Illness HPI Narrative: Patient is a 24-year-old female presents here with dysuria and frequency of urination, she feels she has UTI she has had these before, she has treated them before with just azo but this time she does not feel it has been working. She has had the symptoms now for the last 3 days. Denies any fevers any chills, she has some bilateral back pain, but she normally has back pain, so she is not sure if this is little bit worse than it normally is, she has not taken any Tylenol or any ibuprofen, she has no known allergies. She is sexually active but she says she got are normal. , she does not think she is . No history of previous STDs. Denies any vaginal discharge any diarrhea, no abdominal pain, no numbness tingling weakness in her lower extremities. No nausea vomiting. The drinking otherwise normal. Associated symptoms: denies other symptoms Treatment prior to arrival: none Sexual activity: Yes Patient : No Related Data Home Medications ?Medication ?Instructions ?Recorded ?Confirmed cyclobenzaprine 10 mg tablet 10 mg PO 3XD PRN muscle spasm 12/14/24 12/14/24 escitalopram oxalate 10 mg tablet 10 mg PO QAM 12/14/24 12/14/24 hydroxyzine HCl 25 mg tablet 50 mg PO QPM PRN anxiety 12/14/24 12/14/24 methocarbamol 500 mg tablet 500 mg PO BID 12/14/24 12/14/24 naltrexone 50 mg tablet mg PO 12/14/24 prazosin 1 mg capsule 1 mg PO QPM 12/14/24 12/14/24 Allergies Allergy/AdvReac Type Severity Reaction Status Date / Time No Known Drug Allergies Allergy Verified 04/01/24 08:27 Review of Systems Status of ROS: Reports: 10 or more systems reviewed and unremarkable except as noted in History and below [facility] Surgical History S/P lumpectomy, left breast ?Z98.890 - Other specified postprocedural states (ICD-10) Family History Grandmother Ovarian cancer Mother FH: mental illness Aunt FH: mental illness Brother FH: mental illness Social History Narrative: [employer] at [employer]. Will be attending cosmetology school soon. Completed high school. Smoking Status: Never smoker Do you use any of these nicotine containing products: Vaping Products How often do you have a drink containing alcohol: never AUDIT-C Alcohol total score: 0 Non-prescribed substance use: denies use service: No Exam Narrative: Exam Narrative: On examination in room 4 she is in no apparent distress abdomen is soft there is no guarding, her back is nontender she is able to move around, she is able to bend forward and touch her toes and walk around the room. Skin reveals no petechiae rashes. Const: Vital Signs, click to edit/add: Vital Signs - 24 hr 12/14/24 20:58 Temperature 97.5 F L Pulse Rate [Pulse Oximeter] 70 Respiratory Rate 16 Blood Pressure [Ri ght Upper Arm] 123/82 Pulse Oximetry 97 Oxygen Delivery Me thod Room Air Documenting provider has reviewed patient's vital signs: yes Course Course ED Course: I discussed with her that I would suggest we use antibiotics, we will use t.i.d. Keflex is because of her back pain and the possibility that this is an early pyelonephritis the next 7 days I went over risks verses reward for use of the antibiotics. Worsening signs and symptoms and when she should follow-up here. She was very comfortable this. Vital Signs Vital signs: Initial Vital Signs Temperature 97.5 F L 12/14/24 20:58 Temperature Source Temporal Artery Scan 12/14/24 20:58 Pulse Rate 70 12/14/24 20:58 Respiratory Rate 16 12/14/24 20:58 Blood Pressure 123/82 12/14/24 20:58 Blood Pressure Mean 95 12/14/24 20:58 Blood Pressure Position Sitting 12/14/24 20:58 Pulse Oximetry 97 12/14/24 20:58 Oxygen Delivery Method Room Air 12/14/24 20:58 Vital Signs Temperature 97.5 F L 12/14/24 20:58 Pulse Rate 70 12/14/24 20:58 Respiratory Rate 16 12/14/24 20:58 Blood Pressure 123/82 12/14/24 20:58 Pulse Oximetry 97 12/14/24 20:58 Oxygen Delivery Method Room Air 12/14/24 20:58 Temperature 97.5 F L 12/14/24 20:58 Pulse Rate 70 12/14/24 20:58 Respiratory Rate 16 12/14/24 20:58 Blood Pressure 123/82 12/14/24 20:58 Pulse Oximetry 97 12/14/24 20:58 Oxygen Delivery Method Room Air 12/14/24 20:58 MDM - Female Genitourinary Differential Diagnosis Differential diagnosis: Likely urinary tract infection, bacterial vaginosis, trichomoniasis, vaginitis and dysmenorrhea Medical Records Attestation: I reviewed the patient's medical records. Lab Data Attestation: I reviewed the patient's lab results. Lab results narrative: Urinalysis consistent with a UTI. Labs: Lab Results 12/14/24 Range/Units 21:03 Urine Color [place] A (Yellow) Urine Appearance Cloudy A (Clear) Urine pH 7.0 (5.0-8.5) Ur Specific [place] 1.020 (1.000-1.030) Urine Protein 3+ A (Negative) Urine Glucose (UA) Trace A (Negative) Urine Ketones 1+ A (Negative) Urine Blood 2+ A (Negative) Urine Nitrite Positive A (Negative) Urine Bilirubin 1+ A (Negative) Urine Urobilinogen >=8.0 A (0.2-1.0) Ur Leukocyte Esterase 3+ A (Negative) Urine RBC 2-5 A (0-2) Urine WBC 50-100 A (0-5) Ur Squamous Epith Cells Moderate A (None-Few) Amorphous Sediment Few A (None) Urine Bacteria Moderate A (None) Urine Mucus Few A (None) Discharge Plan Discharge Clinical Impression: Urinary tract infection Patient Disposition: Home w/ Parent or Adult Condition: Stable Instructions: Urinary Tract Infection in Women (DC) Additional Instructions: Home, rest, antibiotics as directed, you may use some azo with this, ibuprofen is probably the best medication to help here dysuria, 600 mg 3 times a day, increasing fevers chills nausea vomiting increasing back pain then please come back, Rx given through [facility] Keflex 500 mg p.o. t.i.d. for 7 days Activity Level: Light activity Prescriptions: No Action cyclobenzaprine 10 mg tablet 10 mg PO 3XD PRN (Reason: muscle spasm) methocarbamol 500 mg tablet 500 mg PO BID prazosin 1 mg capsule 1 mg PO QPM naltrexone 50 mg tablet PO hydroxyzine HCl 25 mg tablet 50 mg PO QPM PRN (Reason: anxiety) escitalopram oxalate 10 mg tablet 10 mg PO QAM Follow Up/Referrals: Provider,Not a Local [Primary Care Provider, Family Practice] Stand Alone Forms: ideeli Info Instructions
== END 2024-12-14 22:30 | disposition home or self-care (01) ==
PROVIDERS: Emergency Provider Family Medicine
DX: N39.0 Urinary tract infection, site not specified (principal)
CPT/HCPCS: 81001; 81003; 87086; 99283